=== PATIENT | male | born 1985 | race African-American/Black ===

== ENCOUNTER 2020-07-16 18:16 | Emergency (ER) | payer OTHER, SELFPAY ==
[2020-07-16 18:31] VITALS: BP 129/78; PULSE 120; RESP 20; TEMP 36.6; O2SAT 98
--- NOTE | 2020-07-16 20:50 | ED.GENADULT ---
HPI - General Adult General Chief complaint: Unspecified Stated complaint: took edibles Time Seen by Provider: 07/16/20 20:50 Source: patient and family Mode of arrival: ambulatory Limitations: no limitations History of Present Illness HPI narrative: Patient is a 34-year-old male who presents for evaluation of having taken edible marijuana he bought at a dispensary earlier today this was the patient's first time using marijuana patient notes he ate 3 edibles and then had what his described as a panic attack patient on arrival is in the room in no distress at rest does appear to be slightly intoxicated answers questions appropriately did have some emesis but now notes that he does not feel nauseous and is feeling better at this time patient in the room in no distress ABCs and vital signs intact and stable patient denies any recent illness and notes that he had felt fine prior to eating the edible marijuana Related Data Allergies Allergy/AdvReac Type Severity Reaction Status Date / Time lactose Allergy Mild Gastrointestinal Verified 02/21/20 11:23 Upset Review of Systems Review of Systems: All systems reviewed & are unremarkable except as noted in HPI and below PMFSH Past Medical History Medical History (Updated 07/16/20 @ 20:53 by Polo Juarez PA-C) Body mass index 36.0-36.9, adult (~01/10/19) Dyslipidemia Erectile dysfunction Surgical History Surgical History [place] teeth extracted Family History Family History Father Family history of coronary artery disease Other Diabetes mellitus Social History Social History Smoking status: Never smoker Second hand tobacco smoke exposure: No Alcohol intake: current Substance use: never Substance use type: does not use Gender identity (if verbalized by the patient): Male Exam Narrative: Exam Narrative: GENERAL: Well-appearing, well-nourished, and in no acute distress. HEAD: Normocephalic, atraumatic. EYES: PERRLA and EOMI. ENT: Nares clear, no rhinorrhea or epistaxis. Mucous membranes moist. CHEST: Clear to auscultation. No respiratory distress. No wheezes rales or rhonchi HEART: Regular rate and rhythm. No murmur heard. Normal peripheral pulses. ABDOMEN: Soft, nontender, nondistended EXTREMITIES: Normal range of motion. No edema. SKIN: Warm, dry, no rash. NEURO: No focal deficits. Alert and oriented x3. Cranial nerves II through XII grossly intact. Normal speech and gait PSYCH: Normal mood and affect. Course Course Emergency Course: Patient in the room no distress hemodynamically stable will be discharged home with his patient and his feel comfortable with this plan Vital Signs Vital signs: Vital Signs Temperature 97.8 F 07/16/20 18:31 Pulse Rate 120 H 07/16/20 18:31 Respiratory Rate 20 07/16/20 18:31 Blood Pressure 129/78 07/16/20 18:31 Pulse Oximetry 98 07/16/20 18:31 Temperature 97.8 F 07/16/20 18:31 Pulse Rate 120 H 07/16/20 18:31 Respiratory Rate 20 07/16/20 18:31 Blood Pressure 129/78 07/16/20 18:31 Pulse Oximetry 98 07/16/20 18:31 Medical Decision Making MDM Narrative Medical decision making narrative: Patient with intoxication secondary to edible marijuana is felt appropriate for outpatient reevaluation patient hemodynamically and stable normal mentation at this time denies any suicidal or homicidal ideation will be sent home with Vital Signs Vital Signs: Vital Signs Temperature 97.8 F 07/16/20 18:31 Pulse Rate 120 H 07/16/20 18:31 Respiratory Rate 20 07/16/20 18:31 Blood Pressure 129/78 07/16/20 18:31 Pulse Oximetry 98 07/16/20 18:31 Temperature 97.8 F 07/16/20 18:31 Pulse Rate 120 H 07/16/20 18:31 Respiratory Rate 20 07/16/20 18:31 Blood Pressure 129/78 07/16/20 18:31
[2020-07-16 21:15] VITALS: BP 139/90; PULSE 100; RESP 18; O2SAT 98
== END 2020-07-16 21:15 | disposition home or self-care (01) ==
PROVIDERS: Emergency Provider Emergency Medicine; PCP Family Medicine
DX: F12.929 Cannabis use, unspecified with intoxication, unspecified (principal)
CPT/HCPCS: 99283

== ENCOUNTER 2023-07-22 14:50 | Outpatient (CLI) | payer OTHER, SELFPAY ==
[2023-07-22 19:18] LABS: Kit Draw Collected
== END 2023-07-22 14:51 | disposition home or self-care (01) ==
LOC: ANHGOSHLAB 14:52
PROVIDERS: PCP Family Medicine; Visit Provider Family Medicine
DX: E78.5 Hyperlipidemia, unspecified (principal); E11.9 Type 2 diabetes mellitus without complications
CPT/HCPCS: 36415

== ENCOUNTER 2024-07-21 10:02 | Outpatient (CLI) | payer OTHER, SELFPAY ==
[2024-07-21 14:24] LABS: Add Urine Microscopic? NO; Appearance Urine Clear (Clear); Bilirubin Urine Negative (Negative); Blood Urine Negative (Negative); Color Urine Yellow (Yellow); Glucose Urine UA 3+ mg/dL (Negative); Ketones Urine Negative (Negative); Leukocyte Esterase Ur Negative LEU/UL (Negative); Nitrate Urine Negative (Negative); Protein Urine Negative (Negative); Specific Grav Ur 1.038 (1.001-1.035); Urobilinogen Urine 0.2 mg/dL (<2.0)
[2024-07-21 17:47] LABS: Alanine Aminotransferase 43 U/L (6-50); Albumin Level 4.5 g/dL (3.5-5.1); Alkaline Phosphatase 92 U/L (38-126); Anion Gap 10 mmol/L (4-12); Aspartate Amino Transferase 58 U/L (17-59); Bilirubin,Total 0.8 mg/dL (0.2-1.3); Blood Urea Nitrogen 11 mg/dL (9-20); Calcium 9.6 mg/dL (8.4-10.2); Carbon Dioxide 26 mmol/L (22-30); Chloride 103 mmol/L (98-107); Cholesterol 153 mg/dL (0-200); Estimated Glomerular Filt Rate > 60; Glucose 99 mg/dL (65-110); HDL Direct 59 mg/dL; Potassium 4.3 mmol/L (3.4-5.0); Sodium 139 mmol/L (137-145); Triglycerides 109 mg/dL (<150)
[2024-07-21 17:58] LABS: LDL Cholesterol Direct 60 mg/dL
[2024-07-22 04:03] LABS: Hemoglobin A1C 6.8 % (<5.7)
== END 2024-07-21 10:03 | disposition home or self-care (01) ==
LOC: ANHGOSHLAB 10:03
PROVIDERS: PCP Family Medicine; Visit Provider Nurse Practitioner Family
DX: E78.5 Hyperlipidemia, unspecified (principal); E11.9 Type 2 diabetes mellitus without complications; R39.9 Unspecified symptoms and signs involving the genitourinary system
CPT/HCPCS: 36415; 80053; 80061; 81003; 83036

== ENCOUNTER 2025-04-14 08:58 | Outpatient (CLI) | payer OTHER, SELFPAY ==
--- OUTSIDE RECORDS SUMMARY | 2025-04-14 09:04 | XMS_ITS | Data Portability ---
Author Organization [facility]/[employer] / [employer] (11) Address [address] [facility] [address] [place] [address] Care Team Providers Care Certified Midwife Name Role Phone TR VELARDE Referring Provider Assessment No assessment recorded. Plan of Treatment Reminders Order Date Submit Date Provider Last Modified By Organization Details Last Modified Time Details Appointments None record ed. Lab None record ed. Referral None record ed. Procedures None record ed. Surgeries None record ed. Imaging None record ed. Medication Orders None record ed. Patient TargetsNo targets recorded. Patient InstructionsNo instructions recorded. Reason for Referral None Reported. Procedures Surgical History Date Name Laterality Status Provider Name and Address Organization Details Recorded Time 01/12/2019 Sleep Study completed Mika Haiderclaire [place] [employer] [employer] 01/14/2019 14:49:31 Imaging Results None recorded. Procedure Notes None recorded. Medical Equipment None Reported. Medications Name Sig Start Date Stop Date Status Note LastModified by Organization Details LastModified Time atorvastatin 20 mg tablet active Not Available Not Available Not Available sildenafil 100 mg tablet active Not Available Not Available No t Available Vitals Date Recorded Body height Body mass index (BMI) Body weight Provider Name and Address Organization Details Last Updated DateTime 01/12/2019 180.34 cm 37.1 kg/m2 381126.57 g Naman Binning-Hrit z [place] [employer] 01/13/2019 11:04:50 Social History None recorded. Functional Status None recorded. Mental Status None recorded. Family History Nothing Reported. Medical History No medical history recorded. Past Encounters Encounter ID Performer Location Encounter Start Date Encounter Closed Date Diagnosis/Indication Diagnosis SNOMED-CT Code Diagnosis ICD10 Code Diagnosis IMO Codes Diagnosis Note [id number] [place] [facility] [place], [facility] (58) [address] [facility] [address] [place] [address] 01/12/2019 20:36:41 01/14/2019 14:50:45 Obstructive sleep apnea of adult 6921291566 103 G47.33 Health Concerns Section Related Observation LastModified by Organization Detai ls LastModified Time None Recorded Concern Status LastModified by Organization Details LastModified Time None Recorded Advance Directives Directive None Recorded Payers Insurance Date Sequence Insurance Name Policy Number Policy Ren Covered Member ID Ren Member ID Guarantor Name 12/23/2018 [facility] ATTN: GILBERT MENDEZUS Edward Weiss [id number] 1 [id number] Edward Weiss 12/23/2018 [place] MCARTHUR [place] Weiss [id number] Edward Weiss Notes Date Note Type Note Provider Name and Address Organization Details Recorded Time 9 text/html HST SetupReported by PatientEquipment InstructionsFor hst set up, patient reportsdemonstrated to patient how to set up home sleep test device. the patient was able to return demonstration with out difficulty.andthe patient is returning the device the following morning.. Benoit Hebert MD, F.C.C.P. [address] [facility] [address], [place], [address], [place] - [facility] [place] 01/17/2019 07:13:56
[2025-04-14 11:41] LABS: Hematocrit 46.5 % (42.0-52.0); Hemoglobin 14.5 g/dL (14.0-18.0); Immature Granulocyte Percent A 0.4 % (0-0.5); Lymphocytes Absolute Auto 2.73 K/mm3 (0.9-3.2); Mean Corpuscular HGB Conc 31.2 g/dl (32-36); Mean Corpuscular Hemoglobin 26.7 pg (26-34); Mean Corpuscular Volume 85.6 fl (80-100); Nucleated Red Blood Cells Absolute Auto 0.000 K/mm3 (0.0-0.012); Nucleated Red Blood Cells Perc 0.0 % (0.0-0.2); Platelet Count Result 256 k/mm3 (150-375); Red Blood Count 5.43 M/mm3 (4.6-6.20); White Blood Count 5.6 K/mm3 (4.5-10.0)
[2025-04-14 11:45] LABS: Alanine Aminotransferase 39 U/L (6-50); Albumin Level 4.6 g/dL (3.5-5.1); Alkaline Phosphatase 91 U/L (38-126); Anion Gap 7 mmol/L (4-12); Aspartate Amino Transferase 57 U/L (17-59); Bilirubin,Total 0.4 mg/dL (0.2-1.3); Blood Urea Nitrogen 11 mg/dL (9-20); Calcium 9.4 mg/dL (8.4-10.2); Carbon Dioxide 29 mmol/L (22-30); Chloride 102 mmol/L (98-107); Cholesterol 148 mg/dL (0-200); Estimated Glomerular Filt Rate > 60; Glucose 110 mg/dL (65-110); HDL Direct 52 mg/dL; Potassium 4.3 mmol/L (3.4-5.0); Sodium 138 mmol/L (137-145); Total Protein 8.5 g/dL (6.3-8.2); Triglycerides 226 mg/dL (<150)
[2025-04-14 12:12] LABS: MALB Creatinine Ratio 32.1 mg/g (0-30)
[2025-04-14 12:14] LABS: Hemoglobin A1C 6.3 % (<5.7)
[2025-04-14 12:15] LABS: Thyroid Stimulating Hormone Reflex 1.270 uIU/mL (0.465-4.68)
== END 2025-04-14 08:59 | disposition home or self-care (01) ==
LOC: ANHGOSHLAB 08:59
PROVIDERS: PCP Family Medicine; Visit Provider Nurse Practitioner Family
DX: E55.9 Vitamin D deficiency, unspecified (principal); E11.9 Type 2 diabetes mellitus without complications; I10 Essential (primary) hypertension; E78.5 Hyperlipidemia, unspecified; E03.9 Hypothyroidism, unspecified
CPT/HCPCS: 36415; 80053; 80061; 82043; 82306; 83036; 84443; 85025